=== PATIENT | female | born 1980 | race Caucasian/White ===

== ENCOUNTER → 2016-11-17 | Outpatient (CLI) | payer BC, OTHER ==
[2016-11-17 15:24] VITALS: BP 120/84
== END ==
LOC: MHUC 14:35
PROVIDERS: ATTEND Physician Assistant
DX: S90.512A Abrasion, left ankle, initial encounter (principal); W20.8XXA Other cause of strike by thrown, projected or falling object, initial encounter
CPT/HCPCS: 99213

== ENCOUNTER → 2016-11-19 | Outpatient (CLI) | payer BC, OTHER | LOC: RAD 14:15 | PROVIDERS: ATTEND Physician Assistant | DX: S86.002A Unspecified injury of left Achilles tendon, initial encounter (principal); W01.0XXA Fall on same level from slipping, tripping and stumbling without subsequent striking against object, initial encounter | CPT/HCPCS: 73700 ==